=== PATIENT | male | born 1995 | race Caucasian/White ===

== ENCOUNTER 2016-12-02 03:53 | Emergency (ER) | payer BC, OTHER ==
[~2016-12-02] VITALS: Ht 175.3 cm; Wt 73.5 kg
[2016-12-02 03:55] VITALS: Ht 175.3 cm; Wt 73.5 kg
--- NOTE | 2016-12-02 04:17 | EMERGENCY ROOM VISIT NOTE ---
History Report prepared by Aartiibe: Berta Dos Santos Under the Supervision of: Dr. Trevor Cordon M.D. First contact with patient: 03:57 Chief Complaint: ALCOHOL OVERDOSE Stated Complaint: ALCOHOL OVERDOSE Nursing Triage Summary: EMS called by friends/roommates. Pt was asleep and they were having a hard time waking him up and said that they couldn't get him to walk. Some vomit on patients shirt. Unsure of amt/type of alcohol. History of Present Illness The patient is a 21 year old male who presents to the Emergency Room to be evaluated for alcohol intoxication this morning. Per nursing staff, EMS was called by the patient's roommates because he was heavily intoxicated and could not walk. His roommates were not with him when he was drinking but they believe that he drank a lot of alcohol. EMS notes that he had vomit on his clothing and was given 4 mg Zofran en route. EMS did not notice any trauma on the patient. History limited secondary to intoxication. Source of History: EMS, nursing staff Onset: [employer] Position: other (global) Quality: other (alcohol intoxication) Timing: constant Associated Symptoms: + vomiting Review of Systems Unobtainable secondary to intoxication. Past Medical & Surgical Unobtainable secondary to intoxication. Family History Unobtainable secondary to intoxication. Social History Smoking Status: Unknown if Ever Smoked Housing Status: lives with roommate Occupation Status: [employer] student Current/Historical Medications No Active Prescriptions or Reported Meds Allergies Coded Allergies: No Known Allergies (Unverified , 12/02/16) Physical Exam Vital Signs Date Time Temp Pulse Resp B/P Pulse Ox O2 Delivery O2 Flow Rate FiO2 12/02/16 09:15 87 18 130/71 97 Room Air 12/02/16 08:17 87 16 114/48 96 12/02/16 07:00 83 18 118/56 97 Room Air 12/02/16 06:57 84 12/02/16 05:28 121/63 12/02/16 05:23 85 16 96 Room Air 12/02/16 04:58 87/72 12/02/16 04:53 77 12 96 12/02/16 04:29 102/51 12/02/16 04:23 82 7 99 12/02/16 04:04 90 12/02/16 04:01 103/53 12/02/16 03:55 118 18 96 Room Air Physical Exam GENERAL: Patient is heavily intoxicated. Smells of alcohol. Well appearing and in no acute distress. Slurred, nonverbal speech. Vomit on chest. HEAD: No evidence of Trauma. AT/NC EYES: Injected conjunctiva. Normal EOM. Pupils equal/reactive. ENT: Mucous membranes moist, no nasal congestion, . NECK: No step-offs, no adenopathy, no meningismus, trachea is midline. LUNGS: No dyspnea. Clear to auscultation and equal bilaterally. No wheeze, no rhonchi. HEART: Regular rate and rhythm. No murmurs, rubs, gallops appreciated. ABDOMEN: Soft, nontender, bowel sounds positive, no masses appreciated, no peritonitis. BACK: No midline tenderness, no CVA tenderness EXTREMITIES: Normal motion all extremities, no cyanosis, no edema. NEUROLOGIC: Heavily ntoxicated. No acute motor or sensory deficits, no focal weakness, cranial nerves grossly intact. SKIN: No rash, no jaundice, no diaphoresis. Medical Decision & Procedures Laboratory Results 12/02/16 04:11 Test 12/02/16 04:11 Anion Gap 9.0 mmol/L (3-11) Est Creatinine Clear Calc Drug Dose 107.2 ml/min Estimated GFR () 111.4 Estimated GFR (Non- 96.1 BUN/Creatinine Ratio 17.1 (10-20) Calcium Level 9.0 mg/dl (8.5-10.1) Ethyl Alcohol mg/dL 207.0 mg/dl (0-3) Laboratory results as reviewed by me. ED Course 0400: The patient was evaluated in room B6. A complete history and physical exam was performed. 0830: Reevaluated the patient. Discussed results and discharge instructions: He verbalized understanding and agreement. The patient is ready for discharge. Medical Decision Differential: Alcohol Intoxication, Drug Intoxication, Electrolyte Abnormality, Trauma, Intracranial Event, Toxicological, Excited Delirium, Serotonin Syndrome , amongst other pathologies entertained. 21 yr old intoxicated male brought in by EMS after being heavily intoxicated in dorm room. Patient with no evidence nor history for trauma. Protecting airway and breathing comfortably throughout ED stay. EtOH positive. Monitored and discharged when awake, alert, oriented and denies any complaints. Impression Primary Impression: Alcohol intoxication Additional Impression: Alcohol abuse Scribe Attestation The scribe's documentation has been prepared under my direction and personally reviewed by me in its entirety. I confirm that the note above accurately reflects all work, treatment, procedures, and medical decision making performed by me. Departure Information Dispostion Home / Self-Care Prescriptions No Active Prescriptions or Reported Meds Patient Instructions Alcohol Intoxication - [facility], My [facility] Health Problem Qualifiers Primary Impression: Alcohol intoxication Complication of substance-induced condition: uncomplicated Qualified Codes: F10.120 - Alcohol abuse with intoxication, uncomplicated
[2016-12-02 04:44] LABS: BUN/CREATININE RATIO 17.1 (10-20); CREATININE 1.1 mg/dl (0.60-1.40); POTASSIUM 4.3 mmol/L (3.5-5.1)
[2016-12-02 09:15] VITALS: BP 130/71; PULSE 87; O2SAT 97
== END 2016-12-02 09:56 | disposition home or self-care (01) ==
LOC: C.EDB 03:55
DX: F10.129 Alcohol abuse with intoxication, unspecified (principal)